=== PATIENT | female | born 1970 | race Caucasian/White ===

== ENCOUNTER 2018-01-29 14:10 | Emergency (ER) | payer BC ==
[2018-01-29] MEDS ORDERED: Sulfamethox/Trimethoprim DS 800/160* TAB PO ONE (14:33)
--- NOTE | 2018-01-29 14:33 | ED ---
Lower Extremity - HPI Summary HPI Summary: This is irene Orellana documenting for attending Jonel Elizondo MD. This patient is a 47 year old F presenting to [facility] with a chief complaint of right foot pain on the 5th metatarsal since 2 days ago. The patient rates the pain 8/10 in severity. Patient reports edema, difficulty ambulating, swollen ankle, and erythema. Pt denies any injury. Pt has been treating herself with cream for athletes foot for the last 5 days. Pt took ibuprofen and iced and elevated her foot two days ago. The next day the swelling went down but then came back again. Allergy to codeine and iodine. Pt normally works in steel toed shoes and removes them immediately upon coming home. Pt left work before coming to the ED. - History of Current Complaint Chief Complaint: EDExtremityLower Stated Complaint: RT FOOT INJURY Time Seen by Provider: 01/29/18 14:18 Hx Obtained From: Patient Mechanism Of Injury: Other - infection Onset of Pain: Days - 2 Onset/Duration: Still Present Severity Initially: Moderate Severity Currently: Severe Pain Intensity: 8 Pain Scale Used: 0-10 Numeric Timing: Constant Location: Is Discrete @ - right foot Associated Signs And Symptoms: Positive: Swelling, Redness Aggravating Factor(s): Ambulation Able to Bear Weight: No - Allergies/Home Medications Allergies/Adverse Reactions: Allergies Allergy/AdvReac Type Severity Reaction Status Date / Time codeine Allergy See Comment Verified 01/29/18 14:11 iodine Allergy Rash Verified 01/29/18 14:11 shellfish derived Allergy Swelling Verified 01/29/18 14:11 Of Face,Lips,& Throat PMH/Surg Hx/FS Hx/Imm Hx History: Denies: Hx Dialysis Sensory History: Denies: Hx Deafness - Cancer History Hx Chemotherapy: No Hx Radiation Therapy: No - Surgical History Surgery Procedure, Year, and Place: 3 C-SECT. HYSTERECTOMY. T&A - Immunization History Immunizations Up to Date: Yes Infectious Disease History: No Infectious Disease History: Denies: Traveled Outside the [place] in Last 30 Days - Family History Known Family History: Positive: Unknown - Social History Alcohol Use: Occasionally Substance Use Type: Reports: None Smoking Status (MU): Current Every Day Smoker Type: Cigarettes Amount Used/How Often: 3/4 PPD Review of Systems Positive: Edema - right foot, Other - difficulty walking, right foot pain Positive: Rash - right foot, Bruising All Other Systems Reviewed And Are Negative: Yes Physical Exam - Summary Physical Exam Summary: Appearance: Well-appearing, Well-nourished, lying in bed comfortable Skin: Warm, dry, no obvious rash Eyes: sclera anicteric, no conjunctival pallor ENT: mucous membranes moist Neck: deferred Respiratory: No signs of respiratory distress Cardiovascular: Appears well perfused, pulses are nml Abdomen: deferred Musculoskeletal: Right foot has erythematous swelling centered at the 5th toe. Length of the swelling goes from the side and dorsum of the foot to the ankle. Neurological: Awake and alert, mentation is normal, speech is fluent and appropriate Psychiatric: affect is normal, does not appear anxious or depressed Triage Information Reviewed: Yes Vital Signs On Initial Exam: Initial Vitals Temp Pulse Resp BP Pulse Ox 98.4 F 73 16 117/75 98 01/29/18 14:14 01/29/18 14:14 01/29/18 14:14 01/29/18 14:14 01/29/18 14:14 Vital Signs Reviewed: Yes Diagnostics - Vital Signs Vital Signs Temp Pulse Resp BP Pulse Ox 01/29/18 14:14 98.4 F 73 16 117/75 98 - Laboratory Lab Statement: Any lab studies that have been ordered have been reviewed, and results considered in the medical decision making process. Lower Extremity Course/Dx - Diagnoses Differential Diagnosis/HQI/PQRI: Positive: Cellulitis Provider Diagnoses: Cellulitis Discharge - Sign-Out/Discharge Documenting (check all that apply): Patient Departure - Discharge Plan Condition: Good Disposition: HOME Prescriptions: Sulfamethox/Trimethoprim DS* [Bactrim DS 800/160 TAB*] 1 tab PO BID #20 tab Patient Education Materials: Cellulitis (ED) Referrals: Guero Santizo MD [Primary Care Provider] - Additional Instructions: Do warm water soaks to the foot several times a day while it is healing. If it is completely back to normal after 7 days of antibiotic you can stop it, but finish it out if there is any residual problem. - Billing Disposition and Condition Condition: GOOD Disposition: Home
[2018-01-29 15:17] VITALS: BP 122/84
== END 2018-01-29 15:05 | disposition home or self-care (01) ==
LOC: ED 14:10
DX: L03.115 Cellulitis of right lower limb (principal); F17.210 Nicotine dependence, cigarettes, uncomplicated; Z88.8 Allergy status to other drugs, medicaments and biological substances; Z88.5 Allergy status to narcotic agent
CPT/HCPCS: 99282; A9270-GY